=== PATIENT | male | born 1985 ===

== ENCOUNTER 2021-03-28 17:11 | Emergency (ER) | payer OTHER ==
[2021-03-28 19:41] VITALS: TEMP 102.7
[2021-03-28] MEDS ORDERED: ACETAMINOPHEN TAB 500 MG TAB PO STA (19:42)
[2021-03-28] MEDS ORDERED: IBUPROFEN 600 MG TAB PO STA (19:42)
--- NOTE | 2021-03-28 19:43 | ED ---
General Adult HPI - General Stated complaint: Covid + Time Seen by Provider: 03/28/21 19:38 - History of Present Illness Initial comments: 35 year-old male patient presents for evaluation after testing positive for COVID, started having symptoms evening. He was not vaccinated. Comes in requesting antibody infusion. Taking nyquil without much relief. Denies chest pain. Reports persistent cough, mild shortness of breath. Denies vomiting and di arrhea. Denies any rash. - Related Data Home Medications Medication Instructions Recorded Confirmed Acetaminophen Tab [Tylenol Tab] 1,000 mg PO Q6HR PRN 03/28/21 03/28/21 Pseudoephedrine 12Hr [Sudafed 12 120 mg PO Q12HR PRN 03/28/21 03/28/21 Hour] guaiFENesin [Mucinex] 600 mg PO BID PRN 03/28/21 03/28/21 Allergies Allergy/AdvReac Type Severity Reaction Status Date / Time No Known Allergies Allergy Verified 03/28/21 22:28 Review of Systems ROS Statement: Those systems with pertinent positive or pertinent negative responses have been documented in the HPI. ROS Other: All systems not noted in ROS Statement are negative. General Exam General appearance: alert, in no apparent distress, other (This is about a well- developed, well-nourished adult male in no acute distress.) Eye exam: Present: normal appearance, PERRL, EOMI. Absent: scleral icterus, conjunctival injection, periorbital swelling ENT exam: Present: normal exam, normal oropharynx, mucous membranes moist Respiratory exam: Present: normal lung sounds bilaterally. Absent: respiratory distress, wheezes, rales, rhonchi, stridor Cardiovascular Exam: Present: normal rhythm, tachycardia, normal heart sounds. Absent: systolic murmur, diastolic murmur, rubs, gallop, clicks GI/Abdominal exam: Present: soft, normal bowel sounds. Absent: distended, tenderness, guarding, rebound, rigid Neurological exam: Present: alert, oriented X3, CN II-XII intact Psychiatric exam: Present: normal affect, normal mood Skin exam: Present: warm, dry, intact, normal color. Absent: rash Course Vital Signs 03/28/21 03/28/21 19:33 23:41 Temperature 102.7 F H Pulse Rate 108 H 110 H Respiratory 19 16 Rate Blood Pressure 133/79 141/93 O2 Sat by Pulse 93 L 93 L Oximetry Medical Decision Making - Medical Decision Making 35 year-old male patient presents after testing positive for COVID. States he had positive home test. He is requesting to receive the antibody infusion. Physical examination reveals clear equal lung sounds. Vital signs do reveal elevated temperature elevated heart rate. Oxygen saturation is satisfactory. He did receive the amount of abdominal antibody infusion without difficulty. To be discharged follow up with his primary care physician for recheck in 1-2 days. Return parameters were discussed in detail. He verbalizes understanding and agrees with this plan. My attending is Dr. Perez. - Lab Data Lab Results 03/28/21 Range/Units 19:42 Coronavirus (PCR) Detected A (Not Detectd) Disposition Clinical Impression: COVID-19 Disposition: HOME SELF-CARE Condition: Good Instructions (If sedation given, give patient instructions): Coronavirus Disease 2019 (COVID-19) Is patient prescribed a controlled substance at d/c from ED?: No Referrals: None,Stated [Primary Care Provider] - 1-2 days Time of Disposition: 23:16
[2021-03-28] MEDS ORDERED: CASIRIVIMAB (REGN10933) (EUA) 600 MG, IMDEVIMAB (REGN10987) (EUA) 600 MG in SODIUM CHLO... IVPB ONE (20:30)
[2021-03-28] MEDS ORDERED: SODIUM CHLORIDE 0.9% 50 ML IVPB ONE (20:30)
[2021-03-28 23:42] VITALS: BP 141/93; PULSE 110; RESP 16
== END 2021-03-28 23:42 | disposition home or self-care (01) ==
LOC: EC 17:11
DX: U07.1 COVID-19 (principal)
CPT/HCPCS: 99284; 87635; Q0244